=== PATIENT | male | born 1925 | race Caucasian/White ===

== ENCOUNTER 2016-09-08 16:27 | Emergency (ER) | payer OTHER, MEDICARE ==
[~2016-09-08] VITALS: Ht 172.7 cm; Wt 69.6 kg
[~2016-09-08 16:27] MED LIST: ACET-1311 PO; AMLO-110 PO; AMX500 PO; ASPI325T39 PO; CALC-492 PO; CHOL20009 PO; DLN100 PO; DLN30 PO; DOCU100C31 PO; ESCI1TAB10 PO; FAMO40TA6 PO; FINA5TAB PO; IPRA1AER2 INH; LCTX PO; LEVO125T72 PO; MAGNSUS5 PO; MELO7.5T5 PO; METO25TA56 PO; MIRA100T PO; MOME100A INH; NITR-5 PO; POLY335019 PO; POLY99.02 OPB; ROPI0.25 PO; SENN-65 PO; ZOLP5TAB PO; [UNRECOGNIZED DRUG - CODE]
[2016-09-08 16:34] VITALS: TEMP 36.5; Ht 172.7 cm; Wt 69.6 kg
[2016-09-08 17:06] VITALS: O2SAT 96
--- NOTE | 2016-09-08 17:07 | DIAGNOSTIC IMAGING REPORT ---
CHEST ONE VIEW PORTABLE CLINICAL HISTORY: Respiratory distress. Shortness of breath. COMPARISON STUDY: Chest radiograph no August 01, 2016 FINDINGS: A ventriculostomy catheter is partially imaged. A hiatal hernia is noted. There is no evidence of pulmonary edema. Borderline cardiomegaly is noted. Mild left basilar opacity favors atelectasis. There is no evidence of pulmonary edema. Left-sided rib fractures are subacute to chronic. IMPRESSION: 1. Minimal left basilar opacity which likely reflect atelectasis. 2. Moderate-sized hiatal hernia. Electronically signed by: Musa Amaya M.D. 09/08/2016 5:05 PM Dictated Date/Time: 09/08/2016 5:00 PM
[2016-09-08] MEDS ORDERED: FLUT1INH INH (17:17)
[2016-09-08] MEDS ORDERED: FERR1TAB23 PO (17:17)
[2016-09-08] MEDS ORDERED: CARI350T28 PO (17:17)
[2016-09-08] MEDS ORDERED: LEVO137T3 PO (17:17)
[2016-09-08] MEDS ORDERED: ZONI100C2 PO (17:17)
[2016-09-08] MEDS ORDERED: GUAI1TAB75 PO (17:17)
[2016-09-08 17:37] LABS: BASO % 0.8 %; BASO ABS # 0.05 K/uL (0-0.2); COMPLETE YES; HEMATOCRIT 33.1 % (42-52); IG% 0.5 %; LYMPH % 18.8 %; LYMPH ABS # 1.12 K/uL (1.2-3.4); MEAN CELL VOLUME 92.2 fL (80-100); MEAN CORPUSCULAR HEMOGLOBIN 31.2 pg (25-34); MEAN CORPUSCULAR HGB CONC 33.8 g/dl (32-36); MEAN PLATELET VOLUME 8.9 fL (7.4-10.4); MONO % 7.7 %; NEUT % 67.2 %; PLATELET COUNT 173 K/uL (130-400); RED BLOOD COUNT 3.59 M/uL (4.7-6.1); WHITE BLOOD COUNT 5.95 K/uL (4.8-10.8)
[2016-09-08 17:51] LABS: PROTHROMBIN TIME (PATIENT) 11.1 SECONDS (9.0-12.0)
[2016-09-08 18:07] LABS: ALT/SGPT 24 U/L (12-78); AST/SGOT 16 U/L (15-37); BLOOD UREA NITROGEN 31 mg/dl (7-18); BUN/CREATININE RATIO 26.1 (10-20); CALCIUM 8.8 mg/dl (8.5-10.1); CARBON DIOXIDE 23 mmol/L (21-32); CHLORIDE 107 mmol/L (98-107); GLUCOSE 94 mg/dl (70-99); POTASSIUM 4.4 mmol/L (3.5-5.1); SODIUM 139 mmol/L (136-145)
[2016-09-08 18:12] LABS: ALB/GLOB RATIO 1.1 (0.9-2); ALKALINE PHOSPHATASE 117 U/L (45-117)
[2016-09-08] MEDS ORDERED: OPTIRAY 320 IV PRN (18:15)
--- NOTE | 2016-09-08 19:16 | DIAGNOSTIC IMAGING REPORT ---
CT ANGIOGRAPHY OF THE CHEST, PULMONARY EMBOLUS PROTOCOL CLINICAL HISTORY: Shortness of breath and elevated d-dimer. COMPARISON STUDY: Chest CT April 24, 2016 TECHNIQUE: Following IV administration of 106 mL of Optiray-320, helical axial images of the chest were obtained utilizing the pulmonary embolus protocol. Maximal intensity projections and sagittal and coronal reformats were viewed on an independent 3D workstation. IV contrast was administered without complication. CT DOSE: 264.38 mGy.cm FINDINGS: No pulmonary emboli are identified. There is no evidence of thoracic aortic dissection. The heart is mildly enlarged. A moderate sized hiatal hernia is noted. There is a small left pleural effusion, significantly decreased in size since chest CT of April 24, 2016. Left lower lobe opacity favors atelectasis. There is no pneumothorax. The central airways are patent. There are multiple healing left-sided rib fractures. A CONSERVATION WORKER shunt catheter is partially imaged. IMPRESSION: 1. No pulmonary emboli identified. 2. Small left pleural effusion, significantly decreased in size since chest CT of April 24, 2016. Associated left lower lobe opacity favors atelectasis. 3. Healing left-sided rib fractures. 4. Moderate sized hiatal hernia. Electronically signed by: Musa Amaya M.D. 09/08/2016 7:14 PM Dictated Date/Time: 09/08/2016 7:05 PM
[2016-09-08] MEDS ORDERED: ASPIRIN 81 MG CHEW PO STA (19:55)
--- NOTE | 2016-09-08 20:41 | EMERGENCY ROOM VISIT NOTE ---
History Report prepared by Sheylaibbernice: Nicole Sanders Under the Supervision of: Dr. Xu Batista D.O. First contact with patient: 16:39 Chief Complaint: SHORTNESS OF BREATH Stated Complaint: SOB , WEAKNESS History of Present Illness The patient is an 89 year old male who presents to the Emergency Room with complaints of persistent, worsening shortness of breath that has been worsening for the past two weeks. The patient notes that he had an episode of chest tightness at 0700 this morning, but states that it was alleviated with Tylenol. He denies any pain radiating to his arm or jaw. The patient denies any recent weight gain. He does note that he has frequent UTIs and has had burning with urination. The patient states that he has a history of aortic regurg for the past 25 years. He additionally notes a history of asthma and COPD. The patient denies any history of a previous DC or valve replacements. He states that his shortness of breath is worsened with exertion. The patient notes a history of hydrocephalus. He states that he had a headache this morning, but notes that it isn't out of the ordinary. Pt denies headache, cough, runny nose , change in vision, fevers, nausea, vomiting, diarrhea, and melena. Source of History: patient Onset: two weeks Position: other (global) Quality: other (shortness of breath) Timing: worsening Modifying Factors (Worsening): exertion Associated Symptoms: + urinary symptoms (burning with urination) Note: Associated Symptoms: chest tightness Review of Systems See HPI for pertinent positives & negatives. A total of 10 systems reviewed and were otherwise negative. 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 (8) SBO (small bowel obstruction) Family History Omitted secondary to age Social History Smoking Status: Former Smoker Alcohol Use: none Drug Use: none Marital Status: Housing Status: [facility] Occupation Status: retired Current/Historical Medications Scheduled Amlodipine (Norvasc), 5 MG PO QAM Artificial Tears (Artificial Tears), 1 DROPS OPB BID Aspirin (Aspirin Ec), 325 MG PO DAILY Calcium Carbonate-Cholecalcife (Oyster Shell Calcium+D 500-200 mg-Unit), 1 TAB PO BIDM Cholecalciferol (Vitamin D), 2,000 UNIT PO DAILY Docusate Sodium (Docusate Sodium), 1 CAP PO BID Escitalopram Oxalate (Lexapro), 20 MG PO DAILY Famotidine (Pepcid), 40 MG PO DAILY Ferrous Sulfate (Iron), 325 MG PO DAILY Finasteride (Proscar), 5 MG PO DAILY Fluticasone Furoate-Vilanterol (Breo Ellipta), 1 PUFF INH DAILY Guaifenesin La (Guaifenesin Er), 600 MG PO Q12H Ipratropium-Albuterol (Combivent Respimat), 1 PUFFS INH BID Lactobacillus Acidophilus (Lactinex), 1 TAB PO QAM Levothyroxine Sodium (Levothyroxine Sodium), 137 MCG PO DAILY Magnesium Hydroxide (Milk Of Magnesia), 30 ML PO DAILY Meloxicam (Mobic), 7.5 MG PO DAILY Metoprolol Tartrate (Lopressor) (Lopressor), 12.5 MG PO BID Polyethylene Glycol 3350 (Miralax), 17 GM PO DAILY Ropinirole (Requip), 0.25 MG PO HS Zonisamide (Zonegran), 200 MG PO HS Scheduled PRN Acetaminophen (Tylenol), 650 MG PO Q4 PRN for mild pain,fever,h/a Amoxicillin (Amoxicillin), 2,000 MG PO UD PRN for 1HR PRIOR TO DENTAL TREATMENT Carisoprodol (Soma), 350 MG PO Q6 PRN for Muscle Spasms Allergies Coded Allergies: Fish-derived Products (Verified Allergy, Unknown, unkn, 09/08/16) Levetiracetam (Verified Allergy, Unknown, unkn, 09/08/16) Physical Exam Vital Signs Date Time Temp Pulse Resp B/P Pulse Ox O2 Delivery O2 Flow Rate FiO2 09/08/16 18:57 60 16 174/71 100 Room Air 09/08/16 17:24 59 09/08/16 17:06 96 Room Air 09/08/16 17:03 Room Air 09/08/16 16:34 36.5 69 20 130/70 98 Room Air Physical Exam GENERAL: Sitting up in bed, disheveled, chronically ill appearing, no acute distress. EYE EXAM: normal conjunctiva. OROPHARYNX: no exudate, no erythema, lips, buccal mucosa, and tongue normal and mucous membranes are moist NECK: supple, no nuchal rigidity, no adenopathy, non-tender LUNGS: Coarse at bases. Normal chest wall mechanics HEART: Positive ejection murmur, S1 normal and S2 normal ABDOMEN: abdomen soft, non-tender, normo-active bowel sounds, no masses, no rebound or guarding. BACK: Back is symmetrical on inspection and there is no deformity, no midline tenderness, no CVA tenderness. SKIN: no rashes and no bruising UPPER EXTREMITIES: upper extremities are grossly normal. LOWER EXTREMITIES: No pitting edema. Calves are equal bilaterally NEURO EXAM: Normal sensorium, cranial nerves II-XII grossly intact, normal speech, no gross weakness of arms, no gross weakness of legs. Medical Decision & Procedures ER Provider Diagnostic Interpretation: Xray results per the radiologist and my interpretation. Other results have been interpreted by the radiologist and reviewed by me. CHEST ONE VIEW PORTABLE CLINICAL HISTORY: Respiratory distress. Shortness of breath. COMPARISON STUDY: Chest radiograph no August 01, 2016 FINDINGS: A ventriculostomy catheter is partially imaged. A hiatal hernia is noted. There is no evidence of pulmonary edema. Borderline cardiomegaly is noted. Mild left basilar opacity favors atelectasis. There is no evidence of pulmonary edema. Left-sided rib fractures are subacute to chronic. IMPRESSION: 1. Minimal left basilar opacity which likely reflect atelectasis. 2. Moderate-sized hiatal hernia. Electronically signed by: Musa Amaya M.D. 09/08/2016 5:05 PM Dictated Date/Time: 09/08/2016 5:[address] ANGIOGRAPHY OF THE CHEST, PULMONARY EMBOLUS PROTOCOL CLINICAL HISTORY: Shortness of breath and elevated d-dimer. COMPARISON STUDY: Chest CT April 24, 2016 TECHNIQUE: Following IV administration of 106 mL of Optiray-320, helical axial images of the chest were obtained utilizing the pulmonary embolus protocol. Maximal intensity projections and sagittal and coronal reformats were viewed on an independent 3D workstation. IV contrast was administered without complication. CT DOSE: 264.38 mGy.cm FINDINGS: No pulmonary emboli are identified. There is no evidence of thoracic aortic dissection. The heart is mildly enlarged. A moderate sized hiatal hernia is noted. There is a small left pleural effusion, significantly decreased in size since chest CT of April 24, 2016. Left lower lobe opacity favors atelectasis. There is no pneumothorax. The central airways are patent. There are multiple healing left-sided rib fractures. A RACING DRIVER shunt catheter is partially imaged. IMPRESSION: 1. No pulmonary emboli identified. 2. Small left pleural effusion, significantly decreased in size since chest CT of April 24, 2016. Associated left lower lobe opacity favors atelectasis. 3. Healing left-sided rib fractures. 4. Moderate sized hiatal hernia. Electronically signed by: Musa Amaya M.D. 09/08/2016 7:14 PM Dictated Date/Time: 09/08/2016 7:05 PM Laboratory Results 09/08/16 17:25 Red Blood Count 3.59, Mean Corpuscular Volume 92.2, Mean Corpuscular Hemoglobin 31.2, Mean Corpuscular Hemoglobin Concent 33.8, Mean Platelet Volume 8.9, Neutrophils (%) (Auto) 67.2, Lymphocytes (%) (Auto) 18.8, Monocytes (%) (Auto) 7.7, Eosinophils (%) (Auto) 5.0, Basophils (%) (Auto) 0.8, Neutrophils # (Auto) 3.99, Lymphocytes # (Auto) 1.12, Monocytes # (Auto) 0.46, Eosinophils # (Auto) 0.30, Basophils # (Auto) 0.05 09/08/16 17:25 Test 09/08/16 17:20 09/08/16 17:25 09/08/16 19:28 Influenza Type A Antigen Neg for Influ A (NEG) Influenza Type B Antigen Neg for Influ B (NEG) White Blood Count 5.95 K/uL (4.8-10.8) Red Blood Count 3.59 M/uL (4.7-6.1) Hemoglobin 11.2 g/dL (14.0-18.0) Hematocrit 33.1 % (42-52) Mean Corpuscular Volume 92.2 fL (80-100) Mean Corpuscular Hemoglobin 31.2 pg (25-34) Mean Corpuscular Hemoglobin Concent 33.8 g/dl (32-36) Platelet Count 173 K/uL (130-400) Mean Platelet Volume 8.9 fL (7.4-10.4) Neutrophils (%) (Auto) 67.2 % Lymphocytes (%) (Auto) 18.8 % Monocytes (%) (Auto) 7.7 % Eosinophils (%) (Auto) 5.0 % Basophils (%) (Auto) 0.8 % Neutrophils # (Auto) 3.99 K/uL (1.4-6.5) Lymphocytes # (Auto) 1.12 K/uL (1.2-3.4) Monocytes # (Auto) 0.46 K/uL (0.11-0.59) Eosinophils # (Auto) 0.30 K/uL (0-0.5) Basophils # (Auto) 0.05 K/uL (0-0.2) RDW Standard Deviation 51.2 fL (36.4-46.3) RDW Coefficient of Variation 15.1 % (11.5-14.5) Immature Granulocyte % (Auto) 0.5 % Immature Granulocyte # (Auto) 0.03 K/uL (0.00-0.02) Prothrombin Time 11.1 SECONDS (9.0-12.0) Prothromb Time International Ratio 1.0 (0.9-1.1) Activated Partial Thromboplast Time 25.0 SECONDS (21.0-31.0) Partial Thromboplastin Ratio 1.0 D-Dimer 630 ug/L FEU (0-500) Anion Gap 9.0 mmol/L (3-11) Est Creatinine Clear Calc Drug Dose 40.4 ml/min Estimated GFR () 61.8 Estimated GFR (Non- 53.3 BUN/Creatinine Ratio 26.1 (10-20) Calcium Level 8.8 mg/dl (8.5-10.1) Total Bilirubin 0.2 mg/dl (0.2-1) Aspartate Amino Transf (AST/SGOT) 16 U/L (15-37) Alanine Aminotransferase (ALT/SGPT) 24 U/L (12-78) Alkaline Phosphatase 117 U/L (45-117) Total Protein 6.8 gm/dl (6.4-8.2) Albumin 3.6 gm/dl (3.4-5.0) Globulin 3.2 gm/dl (2.5-4.0) Albumin/Globulin Ratio 1.1 (0.9-2) Laboratory results per my review. ECG Indication: SOB/dyspnea Rate (beats per minute): 60 Rhythm: sinus rhythm Findings: 1st degree AV block, no ectopy, other (left axis, flipped T wave inferiorly) Comparison ECG Date: 04/24/16 Change: no significant change ED Course ED COURSE: Vital signs were reviewed and showed normal vitals The patients medical record was reviewed The above diagnostic studies were performed and reviewed. ED treatments and interventions as stated above. 1640: The patient was evaluated in room A10. A complete history and physical examination was performed. 1829: I reevaluated the patient and updated him at this time. He is going to have a CT scan. 1950: Upon reevaluation, the patient is resting comfortably.I discussed my findings with the patient and family and they understand and agree with the treatment plan. Based on the patients age, coexisting illnesses, exam and lab findings the decision to treat as an inpatient was made. The patient remained stable while under my care. The patient will be evaluated for further management. 1954: Ordered Aspirin 324 mg PO. 2011: I discussed the patient's case with SMITA Walker. He is going to evaluate the patient for further treatment. 2012: I reevaluated the patient and he is doing well. He and his family are in agreement with the plan. Medical Decision Differential diagnoses includes but is not limited to pneumonia, bronchitis, COPD/Asthma exacerbation, pneumothorax, pulmonary embolism, congestive heart failure, acute coronary syndrome Patient is an 89-year-old male presents the ER with exertional shortness of breath. He did have some chest pain this morning as well. CBC shows mild anemia. BMP along with LFTs and troponin were negative. D-dimer was positive. CT PE was negative. It did show mild atelectasis. Influenza was negative. 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 Troponin was negative. Patient family were updated at bedside. He was given a small dose of aspirin. I do question whether this is secondary to his valvular insufficiency versus ischemia. Patient family were updated at bedside. He was discussed with internal medicine doctor Forrest. Consults Time Called: 1953 Consulting Physician: SMITA Walker Returned Call: 2011 I discussed the patient's case with SMITA Walker. He is going to evaluate the patient for further treatment. Impression Primary Impression: Exertional shortness of breath Additional Impression: Chest pain Scribe Attestation The scribe's documentation has been prepared under my direction and personally reviewed by me in its entirety. I confirm that the note above accurately reflects all work, treatment, procedures, and medical decision making performed by me. Departure Information Dispostion Being Evaluated By Hospitalist Rashad Ceron M.D. (PCP)
--- NOTE | 2016-09-08 22:03 | EMERGENCY ROOM VISIT NOTE ---
ED Visit Note Patient is an 89-year-old male sent out to me at change of shift. The patient has a follow-up appointment on Sunday at [facility]. The patient does not wish to be admitted to the hospital. He was seen by the hospitalist however is refusing to stay.
[2016-09-08 22:28] VITALS: BP 166/69; PULSE 84; O2SAT 92
== END 2016-09-08 22:46 | disposition home or self-care (01) ==
LOC: C.EDB 16:28 → C.EDA 22:46
DX: R06.02 Shortness of breath (principal); R07.9 Chest pain, unspecified; I44.0 Atrioventricular block, first degree; I35.1 Nonrheumatic aortic (valve) insufficiency; E78.5 Hyperlipidemia, unspecified; I10 Essential (primary) hypertension; E03.9 Hypothyroidism, unspecified; J44.9 Chronic obstructive pulmonary disease, unspecified; Z79.82 Long term (current) use of aspirin; Z79.899 Other long term (current) drug therapy; Z88.8 Allergy status to other drugs, medicaments and biological substances; Z87.440 Personal history of urinary (tract) infections; Z87.891 Personal history of nicotine dependence

== ENCOUNTER → 2016-10-30 | Outpatient (CLI) | payer OTHER, MEDICARE ==
[~2016-10-30] MED LIST changes: +CARI350T28 PO; -DLN100 PO; -DLN30 PO; +FERR1TAB23 PO; +FLUT1INH INH; +GUAI1TAB75 PO; -LEVO125T72 PO; +LEVO137T3 PO; -MIRA100T PO; -MOME100A INH; -NITR-5 PO; -SENN-65 PO; -ZOLP5TAB PO; +ZONI100C2 PO; -[UNRECOGNIZED DRUG - CODE]
--- NOTE | 2016-10-30 11:18 | DIAGNOSTIC IMAGING REPORT ---
CHEST 2 VIEWS ROUTINE CLINICAL HISTORY: R06.02 Shortness of [id number] [id number] COMPARISON STUDY: 09/08/2016 FINDINGS: There are minor left basilar atelectatic changes. There are old left-sided rib fractures. There is a right-sided ventriculoperitoneal shunt catheter. There is a retrocardiac opacity consistent with a hiatal hernia.[ There is no failure. There is no lobar consolidation. The heart is normal in size. IMPRESSION: No active disease in the chest. Electronically signed by: Rajiv Rincon M.D. 10/30/2016 11:16 AM Dictated Date/Time: 10/30/2016 11:13 AM
== END | disposition home or self-care (01) ==
LOC: C.RAD1850 10:47
PROVIDERS: ATTEND Internal Medicine Pulmonary Disease
DX: J94.2 Hemothorax (principal); R06.02 Shortness of breath

== ENCOUNTER → 2017-03-01 | Outpatient (CLI) | payer OTHER, MEDICARE ==
[~2017-03-01] MED LIST changes: +GADAVIST IV PRN
--- NOTE | 2017-03-01 13:27 | DIAGNOSTIC IMAGING REPORT ---
MRI brain/orbits. BRAIN COMBO FOR ORBITS CLINICAL HISTORY: DIPLOPIA H47.9 mental status change TECHNIQUE: Multiaxial. Postcontrast images COMPARISON STUDY: 04/09/2015 FINDINGS: Diffusion-weighted images are unremarkable. Stable postoperative change right posterior occipital lobe. Considerable focus of increased signal throughout the periventricular deep white matter regions. This is most consistent with that of chronic small vessel change is similar compared to the prior study. Postcontrast images show evidence for meningeal enhancement which has been present previously. This is considered a chronic finding. There is no evidence for abnormal right normal enhancement. Minimal chronic small vessel change of the right central pontine region also unchanged. Sella and parasellar regions are unremarkable. Internal artery canals are symmetric. The orbits and globes are symmetric. Retroseptal structures are unremarkable. No abnormal enhancement characteristics of the optic nerves. IMPRESSION: 1. Chronic changes as noted. 2. Considerable increase in signal the periventricular deep white matter regions consistent with chronic small vessel change. 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 4. No evidence for new or interval process. 5. Negative study orbits 6. Incidental note is made of an opacified right maxillary sinus Electronically signed by: Cyrus Armstrong M.D. 03/01/2017 1:26 PM Dictated Date/Time: 03/01/2017 1:19 PM
== END | disposition home or self-care (01) ==
LOC: C.MRI 10:54
PROVIDERS: ATTEND Psychiatry & Neurology Neurology
DX: H47.9 Unspecified disorder of visual pathways (principal)